=== PATIENT | female | born 2000 | race African-American/Black ===

== ENCOUNTER 2019-11-07 08:00 | Outpatient (CLI) | payer OTHER ==
[2019-11-07 17:03] LABS: HGB - HEMOGLOBIN 10.9 g/dL (12.0-16.0); MEAN CORPUSCULAR HEMOGLOBIN 29.1 pg (27.0-31.0); MEAN CORPUSCULAR HGB CONC 32.7 g/dL (32.0-36.0); RED BLOOD COUNT 3.74 10^6/uL (4.20-5.40); RED CELL DISTRIBUTION WIDTH 13.9 % (12.0-15.0); WHITE BLOOD COUNT 4.5 x10^3/uL (4.8-10.8)
[2019-11-07 18:14] LABS: % IRON SATURATION 18 % (20-50); IRON 97 ug/dL (28-170); TOTAL IRON BINDING CAPACITY 525 ug/dL (250-450); TRANSFERRIN 375 mg/dL (192-382)
== END 2019-11-07 23:59 | disposition home or self-care (01) ==
LOC: LAB.WCP 08:00
PROVIDERS: ATTEND Obstetrics & Gynecology
DX: O99.019 Anemia complicating pregnancy, unspecified trimester (principal); D64.9 Anemia, unspecified; Z3A.00 Weeks of gestation of pregnancy not specified
CPT/HCPCS: 36415; 82728; 82950; 83540; 84466; 85027; 86850

== ENCOUNTER 2019-12-05 07:00 | Outpatient (CLI) | payer OTHER ==
[2019-12-05 21:34] LABS: CANDIDA GROUP DNA NEGATIVE (NEGATIVE); CANDIDA KRUSEI DNA NEGATIVE (NEGATIVE); TRICHOMONAS VAGINALIS DNA NEGATIVE (NEGATIVE)
[2019-12-05 22:49] LABS: TRICHOMONAS VAGINALIS DNA NEGATIVE (NEGATIVE)
== END 2019-12-05 23:59 | disposition home or self-care (01) ==
LOC: LAB.R 07:00
PROVIDERS: ATTEND Obstetrics & Gynecology
DX: O46.93 Antepartum hemorrhage, unspecified, third trimester (principal)
CPT/HCPCS: 82731; 87491; 87591; 87661; 87801

== ENCOUNTER 2020-01-02 07:00 | Outpatient (CLI) | payer OTHER ==
[2020-01-02 19:03] LABS: TRICHOMONAS VAGINALIS DNA NEGATIVE (NEGATIVE)
== END 2020-01-02 23:59 | disposition home or self-care (01) ==
LOC: LAB.R 07:00
PROVIDERS: ATTEND Obstetrics & Gynecology
DX: Z11.3 Encounter for screening for infections with a predominantly sexual mode of transmission (principal); Z36.85 Encounter for antenatal screening for Streptococcus B
CPT/HCPCS: 87491; 87591; 87661; 87797

== ENCOUNTER 2020-01-30 00:10 | Inpatient (IN) | payer OTHER ==
[2020-01-30] MEDS ORDERED: LIDOCAINE-MPF 1% 30 ML VIAL ID PRN (00:48)
[2020-01-30] MEDS ORDERED: CARBOPROST TROMETHAMINE 250 MCG/ML AMP IM PRN (00:48)
[2020-01-30] MEDS ORDERED: TRANEXAMIC ACID 1,000 MG in SODIUM CHLORIDE 0.9% 100ML 100 ML IV PRN (00:48)
[2020-01-30] MEDS ORDERED: miSOPROStoL 200 MCG TABLET BC PRN (00:48)
[2020-01-30] MEDS ORDERED: OXYTOCIN/SODIUM CHLORIDE 500 ML IV PRN (00:48)
[2020-01-30] MEDS ORDERED: SODIUM CHLORIDE FLUSH 0.9% 10 ML SYRINGE IVP PRN (00:48)
[2020-01-30] MEDS ORDERED: METHYLERGONOVINE 0.2 MG/ML VIAL IM PRN (00:48)
[2020-01-30] MEDS ORDERED: OXYTOCIN 10 UNIT/ML VIAL IM PRN (00:48)
[2020-01-30 01:21] LABS: BASOPHILS % (AUTO) 0.4 %; EOSINOPHILS % (AUTO) 0.7 %; HGB - HEMOGLOBIN 13.7 g/dL (12.0-16.0); LYMPHOCYTES # (AUTO) 1.6 10^3/uL (1.5-3.5); LYMPHOCYTES % (AUTO) 35.8 %; MEAN CORPUSCULAR HEMOGLOBIN 29.3 pg (27.0-31.0); MEAN CORPUSCULAR HGB CONC 34.3 g/dL (32.0-36.0); MEAN CORPUSCULAR VOLUME 85.4 fL (81.0-99.0); MEAN PLATELET VOLUME 12.2 fL (7.9-10.8); MONOCYTES # (AUTO) 0.4 10^3/uL (0.0-1.0); MONOCYTES % (AUTO) 7.9 %; NEUTROPHILS # (AUTO) 2.5 10^3/uL (1.5-6.6); PLT - PLATELET COUNT 128 10^3/uL (130-450); RED BLOOD COUNT 4.67 10^6/uL (4.20-5.40); RED CELL DISTRIBUTION WIDTH 13.6 % (12.0-15.0); WHITE BLOOD COUNT 4.6 x10^3/uL (4.8-10.8)
[2020-01-30] MEDS: SODIUM CHLORIDE FLUSH 0.9% 10 ML SYRINGE IVP SCH ×2 (01:47→17:41)
[2020-01-30] MEDS: LACTATED RINGERS 1,000 ML IV SCH ×5 (02:46→17:43)
--- NOTE | 2020-01-30 03:54 | HISTORY & PHYSICAL EXAMINATION ---
Admit History - Visit Reason Visit Reason: Contractions - : 1 Parity: 0 Care: positive: [facility] Risk/History: positive: None Complications This : positive: None, Other (mild thrombocytopenia noted on admission) Smoking Status: Never smoker - Mother's Labs Mother's Blood Type: positive: O Mother's RH: positive: Negative GBS: positive: Group B Step Negative Rubella Status: positive: Immune - Other Maternal History Other Maternal History: Patient is a 19 yo at 39w6d here with painful contractions. Patient has been having painful contractions throughout the evening. Presented at 00:22 with painful contractions. Cervical exam was 6 cm/80/-1 per RN exam. Patient observed on floor and is now 8.5/100/-1. No LOF or VB. Endorses FM. has been complicated by UTI in early and alpha thalassemia trait. Dating LMP 04/26/2019 gives SHILO of 01/31/2020. Ultrasound on 07/11/2020 at 11 weeks 1 day gives SHILO 01/31/2020, CWD. O neg/Rub imm CF and genetic screen declined FAS posterior, EFW 45%ile, 3VC, TVCL 4.8 Alpha thal heterozygote, iron wnl at 28 wga, HCT 33.3 Glucola 82 TDaP complete Rhogam given 11/07/2019 Breast pump RX given HSV: confirmed negative GBS neg Vertex by US Due for pap 07/2020 Meds/Allgy - Allergies Allergies/Adverse Reactions: Allergies Allergy/AdvReac Type Severity Reaction Status Date / Time nickel Allergy Rash Uncoded 01/30/20 01:25 Review of Systems - Other Findings Other Findings: As per HPI, otherwise remaining systems are negative. Physical - Abdominal Exam Vital Signs: Temp Pulse Resp BP Pulse Ox 208.8 F H 72 18 125/74 100 01/30/20 01:04 01/30/20 00:24 01/30/20 00:24 01/30/20 00:24 01/30/20 00:24 Contraction Frequency (min/apart): Q2-3 Contraction Intensity: positive: Moderate - Monitoring Heart Rate Baseline: 120 , 10x10 accels, no decels Strip Review: positive: Category I - Vaginal Exam Membranes: positive: Membranes intact Dilation (in cm): 8.5 Effacement (%): 100 Station: positive: -1 Plan for Labor - Plan For Labor Plan for Labor: LABOR: -Patient desires low intervention -Agrees to cervical exam in 1.5 hours -Ok with AROM at that time -Contractions are spacing out. Now Q3-5 min. Consider augmentation vs AROM -Anticipate FWB: Vertex, GBS neg, Cat I tracing, appropriately grown PAIN: Desires unmedicated -Epidural on patient request. In-patient care
--- NOTE | 2020-01-30 04:47 | PROVIDER PROGRESS NOTE ---
Subjective - Prog Note Date Prog Note Date: 01/30/20 Prog Note Time: 04:46 - Subjective Subjective: Patient has emesis w/o nausea. Does not desire Zofran AROM for clear fluid SVE 8/90/-1 125 od abdulkadir 15x15 accesl no decels TOCO: Q4 min Cat I tracing Anticipate Objective - Vital Signs/Intake & Output Vital Signs: Vital Signs x48h Temp Pulse Resp BP Pulse Ox 01/30/20 01:04 98.2 F 01/30/20 00:24 98.2 F 72 18 125/74 100 - Lab Results Fish Bones: 01/30/20 01:12 Other Labs: Lab Results x24hrs 01/30/20 Range/Units 01:12 WBC 4.6 L (4.8-10.8) x10^3/uL RBC 4.67 (4.20-5.40) 10^6/uL Hgb 13.7 (12.0-16.0) g/dL Hct 39.9 (37.0-47.0) % MCV 85.4 (81.0-99.0) fL MCH 29.3 (27.0-31.0) pg MCHC 34.3 (32.0-36.0) g/dL RDW 13.6 (12.0-15.0) % Plt Count 128 L (130-450) 10^3/uL MPV 12.2 H (7.9-10.8) fL Neut # (Auto) 2.5 (1.5-6.6) 10^3/uL Lymph # (Auto) 1.6 (1.5-3.5) 10^3/uL [place] # (Auto) 0.4 (0.0-1.0) 10^3/uL Eos # (Auto) 0.0 (0.0-0.7) 10^3/uL Baso # (Auto) 0.0 (0.0-0.1) 10^3/uL Absolute Nucleated RBC 0.00 x10^3/uL Nucleated RBC % 0.0 /100WBC
[2020-01-30] MEDS ORDERED: SIMETHICONE CHEW 80 MG TABLET PO PRN (06:32)
[2020-01-30] MEDS ORDERED: DOCUSATE SODIUM 100 MG CAPSULE PO PRN (06:32)
[2020-01-30] MEDS ORDERED: ONDANSETRON ODT 4 MG TABLET TL PRN (06:32)
[2020-01-30] MEDS ORDERED: HYDROCORTISONE 1% CREAM 28 GM TUBE PR PRN (06:32)
[2020-01-30] MEDS ORDERED: ACETAMINOPHEN 500 MG TABLET PO PRN (06:32)
[2020-01-30] MEDS ORDERED: IBUPROFEN 600 MG TABLET PO PRN (06:32)
--- NOTE | 2020-01-30 06:38 | DELIVERY NOTE ---
Delivery Note - Labor Labor: positive: Spontaneous - Delivery Method Delivery Method: positive: Spontaneous vaginal delivery - Presentation Presentation: positive: Vertex, SAUL - right occiput anterior - Anesthetic Anesthetic Type: - Amniotic Fluid Description Amniotic Fluid Description: positive: Clear - Laceration Laceration: positive: 1st degree, Periurethral - Suture Suture Type: positive: Vicryl Suture Size: positive: 3-0 - Delivery Outcome Delivery Outcome: positive: Livebirth - : positive: Placed in direct skin contact with mother, Suctioned, Stimulated, Warmed, [place] used [place] sex: positive: Male - Cord Cord: positive: 3 vessels - Placenta Placenta: positive: Intact, Expressed - Estimated Blood Loss Estimated Blood Loss (in cc): 150 - Post Delivery Events Post Delivery Events: positive: No post delivery events - Delivery Comments (Free Text/Narrative) Delivery Comments (Free Text/Narrative): STAGE I: Patient is a 19 yo at 39w6d who presented with painful contractions. Patient has been having painful contractions throughout the evening. Presented at 00:22 with painful contractions. Cervical exam was 6 cm/80/-1 per RN exam. After 2 hours of observation, she was 8 cm. Artificial rupture of membranes at 4:41 notable for passage of clear fluid. No epidural for pain management. GBS negative; antibiotics were not given. Cat I tracing throughout Stage I labor. Complete at 5;40 am. STAGE II: Patient pushed well for 14 minutes to deliver a viable male infant from SAUL position with compound presentation of the left hand and a bandolier cord, which presented with the face. Infant was delivered through the cord to maternal abdomen. Cord was clamped x2 and cut after the pulsations had ceased. Weight and Apgars are pending. STAGE III: Placenta was delivered with manual expression. It was examined and found to be intact. Inspection of the perineum showed bilateral first degree pe riurethral tears. A total of 16 cc of 1% lidocaine was administered for local anesthetic. Lacerations were repaired with 3-0 Vicryl in the usual sterile fashion. Total EBL was 150 cc. Procedure was well tolerated and without complication. Cord blood collected. Maternal bloof type is O negative.
[2020-01-30] MEDS ORDERED: LACTATED RINGERS 500 ML IV ONE (12:35)
[2020-01-30] MEDS ORDERED: RHO(D) IMMUNE GLOBULIN 300 MCG SYRINGE IVP ONE (18:34)
[2020-01-31 09:47] VITALS: BP 122/73
--- NOTE | 2020-01-31 13:22 | Discharge Plan ---
Discharge Plan Problem Reviewed?: Yes Disposition: Home, Self Care Condition: Good Diet: Regular Activity Restrictions: Additional Comments (Nothing in the vagina for 6 weeks: No intercourse, tampons, douching Call for: -Fever greater than 100.5 - Pain that does not improve with pain medication -Heavy bleeding in which you are soaking a pad an hour for 2 hours in a row) Additional Instructions or Follow Up instructions: Ibuprofen 600 mg by mouth every 6 hours as needed for pain Acetaminophen 500-1000 mg by mouth every 8 hours as needed for pain Docusate 100-200 mg by mouth twice a day as needed for constipation No Smoking: If you smoke, Please STOP! Call for help. Follow-up with: Mary Colon MD [Provider Admit Priv/Credential] -
--- NOTE | 2020-01-31 17:13 | Labor Flowsheet ---
Labor Flowsheet Datetime Report Generated by CPN: 01/31/2020 17:13 Datetime: 01/31/2020 07:49 VITAL SIGNS NBP Sys/Brenane/Mean (mmHg): 122 : 73 : 85 Pulse: 71 Datetime: 01/30/2020 15:50 SpO2 (%): 98 Datetime: 01/30/2020 05:55 Stage of : Recovery Datetime: 01/30/2020 05:54 UTERINE ACTIVITY Monitor Mode: External Monitor Interventions for UA: [place] Adjusted Frequency (min): 1-2 Quality: Strong Duration (sec): 40-70 Pattern: Tachysystole: > 5 Contractions in 10 Minutes Resting Tone (Palpate): Relaxed ASSESSMENT A Monitor Mode: External US Monitor Interventions for FHR: Ultrasound Adjusted FHR Baseline Rate : 120 FHR Baseline Changes: No Baseline Change Variability: Moderate 6-25 bpm Accelerations: 15X15 Decelerations: Variable Comments: Pushing-delivery Datetime: 01/30/2020 05:40 STAGE 2 Pushing: Coached on Pushing; Urge to Push (Annotations: pushing now with contr.) Pushing Position: Pushing with Contractions Datetime: 01/30/2020 05:38 COMMUNICATION Communication: Provider at Bedside Datetime: 01/30/2020 05:35 Pain Assessment Comments: urge to push LaborFlag: Labor Datetime: 01/30/2020 05:32 PATIENT CARE Patient Position/Activity: Hands-Knees Datetime: 01/30/2020 05:30 Category: Category I Datetime: 01/30/2020 05:11 Respirations: 20 Temperature (C): 36.9 Temperature Route: Oral Datetime: 01/30/2020 05:04 Effacement (%): 100 Patient Care Comments: emesis Datetime: 01/30/2020 04:43 VAGINAL EXAM Dilatation (cm): 8.0 Station: -1 Exam by: Dr. Colon Vaginal Exam Comments: no change Datetime: 01/30/2020 04:41 Membrane Status: Ruptured Membranes Rupture Method: Artificial Amniotic Fluid Color: Clear Amniotic Fluid Amount: Moderate Datetime: 01/30/2020 04:34 Communication Comments: pt requesting AROM, MD on unit - notified. Datetime: 01/30/2020 04:10 PAIN Pain Presence: Intermittent Pain Type: Contraction Pain Location: Back Pain Coping: Breathing Through Contractions; Declines Medication or Epidural Datetime: 01/30/2020 04:07 I/O Interventions: Up to BR Datetime: 01/30/2020 03:41 Strip Reviewed by: Dr. Colon Datetime: 01/30/2020 03:18 Actions for Decelerations: IV Bolus Datetime: 01/30/2020 03:10 Provider Notified (Name): Dr. Colon Notification Reason: Status Update Datetime: 01/30/2020 03:08 Vaginal Bleeding: Normal Show Cervix, Consistency: Soft Cervix, Position: Anterior
--- NOTE | 2020-02-04 17:14 | PROVIDER PROGRESS NOTE ---
Subjective - Prog Note Date Prog Note Date: 01/31/20 Prog Note Time: 13:00 - Subjective Subjective: No complaints. Up and ambulating, tolerating po, pain well managed, Voiding. Desires DC home Objective - Vital Signs/Intake & Output Vital Signs: 98.1 69 122/73 18 99% - Objective General Appearance: positive: No acute distress Respiratory: positive: No respiratory distress, Breath sounds nml Cardiovascular: positive: Regular rate & rhythm Abdomen: positive: Other (&NT/ND. FF below umbi) Extremities: positive: Non-tender Neurologic/Psychiatric: positive: Oriented x3 - Lab Results Fish Bones: 01/30/20 01:12 Assessment/Plan - Problem List (1) Vaginal delivery Impression: PPD#1 s/p Doing well DC to home when infant cleared for discharge Routine DC instructions given.
--- NOTE | 2020-02-04 17:20 | DISCHARGE SUMMARY ---
Discharge Summary Admit Date: 01/30/20 Discharge Date: 01/31/20 Discharging Provider: Isaiah Condition at Discharge: Good Discharge Disposition: 01 Home, Self Care - DIAGNOSES Admission Diagnoses: IUP at 39+6 wga Active labor Rh negative Discharge Diagnoses with Status of Each Condition: Same and delivery of term gestation - HPI History of Present Illness: Patient is a 19 yo at 39w6d who presented with painful contractions. Patient has been having painful contractions throughout the evening. Presented at 00:22 with painful contractions. Cervical exam was 6 cm/80/-1 per RN exam. Admitted for labor. Uncomplicated course. Rh negative. - HOSPITAL COURSE Hospital Course: STAGE I: Patient is a 19 yo at 39w6d who presented with painful contractions. Patient has been having painful contractions throughout the evening. Presented at 00:22 with painful contractions. Cervical exam was 6 cm/80/-1 per RN exam. After 2 hours of observation, she was 8 cm. Artificial rupture of membranes at 4:41 notable for passage of clear fluid. No epidural for pain management. GBS n egative; antibiotics were not given. Cat I tracing throughout Stage I labor. Complete at 5;40 am. STAGE II: Patient pushed well for 14 minutes to deliver a viable male infant from SAUL position with compound presentation of the left hand and a bandolier cord, which presented with the face. Infant was delivered through the cord to maternal abdomen. Cord was clamped x2 and cut after the pulsations had ceased. Weight and Apgars are pending. STAGE III: Placenta was delivered with manual expression. It was examined and found to be intact. Inspection of the perineum showed bilateral first degree periurethral tears. A total of 16 cc of 1% lidocaine was administered for local anesthetic. Lacerations were repaired with 3-0 Vicryl in the usual sterile fashion. Total EBL was 150 cc. Procedure was well tolerated and without complication. Cord blood collected. Maternal bloof type is O negative. was O positive. Rhogam given on 01/30/2020 at 18:35 Uncomplicated course Discharged to home of PPD#1. Declined DC meds. - ALLERGIES Allergies/Adverse Reactions: Allergies Allergy/AdvReac Type Severity Reaction Status Date / Time nickel Allergy Rash Uncoded 01/30/20 01:25 - LABS Result Diagrams: 07/13/20 01:12 - FOLLOW UP Follow Up: In 1 and 6 weeks with sIaiah - TIME SPENT Time Spent in Discharge (Minutes): 30
== END 2020-01-31 16:30 | disposition home or self-care (01) | DRG 806 ==
LOC: WFO 00:10 → FBP 00:14 → WFO 00:47 → FBP 00:48
PROVIDERS: ADMIT Obstetrics & Gynecology; ATTEND Obstetrics & Gynecology
PROC: 0UQMXZZ Repair Vulva, External Approach (ICD-10-PCS; principal; 2020-01-30)
PROC: 10E0XZZ Delivery of Products of Conception, External Approach (ICD-10-PCS; 2020-01-30)
PROC: 10907ZC Drainage of Amniotic Fluid, Therapeutic from Products of Conception, Via Natural or Artificial Opening (ICD-10-PCS; 2020-01-30)
DX: O71.82 Other specified trauma to perineum and vulva (principal); O99.12 Other diseases of the blood and blood-forming organs and certain disorders involving the immune mechanism complicating childbirth; Z37.0 Single live birth; O32.6XX0 Maternal care for compound presentation, not applicable or unspecified; O69.82X0 Labor and delivery complicated by other cord entanglement, without compression, not applicable or unspecified; Z3A.39 39 weeks gestation of pregnancy; D69.6 Thrombocytopenia, unspecified; O99.02 Anemia complicating childbirth; D56.3 Thalassemia minor; O75.89 Other specified complications of labor and delivery; R11.10 Vomiting, unspecified
CPT/HCPCS: 36415; 83033; 85025; 86900; 86901; 99212; A9270; J7120